=== PATIENT | female | born 1990 | race Caucasian/White ===

== ENCOUNTER → 2020-01-31 08:18 | Outpatient (BNVA) | payer OTHER, SELFPAY | PROVIDERS: Visit Provider Internal Medicine | DX: Z13.89 Encounter for screening for other disorder (principal) | CPT/HCPCS: 99213 ==

== ENCOUNTER → 2020-02-07 07:51 | Outpatient (BNVA) | payer OTHER, SELFPAY | PROVIDERS: Visit Provider Internal Medicine | DX: S39.012D Strain of muscle, fascia and tendon of lower back, subsequent encounter (principal); X58.XXXD Exposure to other specified factors, subsequent encounter | CPT/HCPCS: 99213 ==

== ENCOUNTER 2020-02-14 07:10 | Outpatient (REF) | payer OTHER, SELFPAY ==
--- NOTE | 2020-02-14 | MR_ITS ---
EXAMINATION: MR LUMBAR SPINE WITHOUT CONTRAST CLINICAL INFORMATION: Lifting injury with persistent pain. COMPARISON: There are no prior studies available for comparison at time of dictation. TECHNIQUE: MRI of the lumbar spine was obtained using routine sequences without contrast. FINDINGS: VERTEBRAL BODIES AND PARASPINAL STRUCTURES: There is a mild levoscoliosis. There is loss of signal from the intervertebral disc at L4-L5. Intervertebral disc heights are maintained. The vertebral bodies have normal height and contour, and there are no acute fractures. Overall, marrow signal is homogenous. The visualized retroperitoneal and pelvic structures are unremarkable. CONUS MEDULLARIS AND CAUDA EQUINA: Normal, terminating at the level of T12-L1. The lower thoracic spinal cord appears normal. The cauda equina nerve roots and filum terminale appear normal. SPINAL LEVELS: T12-L1: The facet joints appear normal bilaterally. Disc contour is normal. There is no central stenosis or foraminal narrowing. L1-L2: The facet joints appear normal bilaterally. Disc contour is normal. There is no central stenosis or foraminal narrowing. L2-L3: The facet joints appear normal bilaterally. Disc contour is normal. There is no central stenosis or foraminal narrowing. L3-L4: The facet joints appear normal bilaterally. Disc contour is normal. There is no central stenosis or foraminal narrowing. L4-L5: There is mild bilateral facet arthropathy. There is a broad-based posterior disc protrusion with an annular fissure, which flattens the ventral thecal sac. A small extruded component is seen extending cephalad behind the body of L4 to the right of midline without traversing nerve root impingement. The neural foramina are patent bilaterally. There is no central stenosis. L5-S1: The facet joints appear normal bilaterally. Disc contour is normal. There is no central stenosis or foraminal narrowing. MR/MR lumbar spine wo con IMPRESSION: 1. There is facet arthropathy and a posterior disc protrusion at L4-L5, with a small extruded component on the right extending behind the body of L4. There is no impingement on the traversing or exiting nerve roots, and there is no central stenosis.
== END 2020-02-14 07:11 | disposition home or self-care (01) ==
LOC: HO.MRI 07:10
PROVIDERS: Visit Provider Internal Medicine
DX: M54.5 Low back pain (principal)
CPT/HCPCS: 72148

== ENCOUNTER → 2020-02-21 07:51 | Outpatient (BNVA) | payer OTHER, SELFPAY | PROVIDERS: Visit Provider Internal Medicine | DX: M51.26 Other intervertebral disc displacement, lumbar region (principal) | CPT/HCPCS: 99214 ==

== ENCOUNTER 2020-03-09 13:00 | Outpatient (RCR) | payer OTHER, SELFPAY ==
--- NOTE | 2020-03-09 16:39 | MHC.PT.DC ---
[facility] [place] Office [place] [facility] [place] Office [address] Ghanshyam Franco [address] [phone] F: [phone] F: [phone] F: [phone] F: [phone] Physical Therapy Discharge Report Diagnosis: Lumbar strain Date of Surgery: Date of Evaluation: 12/23/19 Date of Discharge: Treatments to Date: 24 Cancellations to Date: 0 No Shows to Date: 0 Discharge Status: Discharge Summary: GOOD PERFORMANCE OF EXS AND STRETCHES OVERALL BETTER THAN SOC, BUT CONTINUES WITH SOME BACK PAIN, HAS SEEN NEUROSURGEON AND HAS FU IN 6 WEEKS. WILL DC AT THIS TIME HAVING PLATEAUED IN PT AND I WITH HEP. ED TO CONTACT PT WITH ANY QUESTIONS OR NEED FOR FURTHER PT (?[facility] [place]) Electronically signed by: ALPHONSO TOTH PT Please sign and return to therapist. Thank you for your referral.
--- NOTE | 2020-04-11 11:00 | MHC.PT.DC ---
[facility] [place] Office [place] [facility] [place] [facility] [address] Ghanshyam Franco [address] [phone] F: [phone] F: [phone] F: [phone] F: [phone] Physical Therapy Discharge Report Diagnosis: Lumbar strain Date of Surgery: Date of Evaluation: 12/23/19 Date of Discharge: 03/09/20 Treatments to Date: 24 Cancellations to Date: 0 No Shows to Date: 0 Discharge Status: Improved Function Independent with HEP Discharge Summary: GOOD PERFORMANCE OF EXS AND STRETCHES OVERALL BETTER THAN SOC, BUT CONTINUES WITH SOME BACK PAIN, HAS SEEN NEUROSURGEON AND HAS FU IN 6 WEEKS. WILL DC AT THIS TIME HAVING PLATEAUED IN PT AND I WITH HEP. ED TO CONTACT PT WITH ANY QUESTIONS OR NEED FOR FURTHER PT (?[facility] [place]) Electronically signed by: ALPHONSO TOTH PT Please sign and return to therapist. Thank you for your referral.
== END 2020-05-09 13:35 | disposition other institution (70) ==
LOC: HO.PT 13:00
PROVIDERS: Visit Provider Internal Medicine
DX: S39.012D Strain of muscle, fascia and tendon of lower back, subsequent encounter (principal)
CPT/HCPCS: 97014; 97110; 97112; 97140; 97530

== ENCOUNTER → 2020-07-02 11:39 | Outpatient (BNVA) | payer OTHER, SELFPAY | PROVIDERS: Visit Provider Internal Medicine | DX: M51.27 Other intervertebral disc displacement, lumbosacral region (principal) | CPT/HCPCS: 99202 ==

== ENCOUNTER → 2020-07-10 09:27 | Outpatient (BNVA) | payer OTHER, SELFPAY | PROVIDERS: Visit Provider Internal Medicine | DX: M54.5 Low back pain (principal) | CPT/HCPCS: 99213 ==

== ENCOUNTER → 2020-08-16 15:24 | Outpatient (BNVA) | payer OTHER, SELFPAY | PROVIDERS: Visit Provider Internal Medicine | DX: M54.5 Low back pain (principal) | CPT/HCPCS: 99213 ==

== ENCOUNTER → 2020-08-31 08:33 | Outpatient (BNVA) | payer OTHER, SELFPAY | PROVIDERS: Visit Provider Internal Medicine | DX: M54.5 Low back pain (principal) | CPT/HCPCS: 99213 ==

== ENCOUNTER → 2020-10-01 08:33 | Outpatient (BNVA) | payer OTHER, SELFPAY | PROVIDERS: Visit Provider Internal Medicine | DX: S39.012D Strain of muscle, fascia and tendon of lower back, subsequent encounter (principal); X58.XXXD Exposure to other specified factors, subsequent encounter | CPT/HCPCS: 99213 ==

== ENCOUNTER → 2020-10-19 07:56 | Outpatient (BNVA) | payer OTHER, SELFPAY | PROVIDERS: Visit Provider Internal Medicine | DX: S39.012D Strain of muscle, fascia and tendon of lower back, subsequent encounter (principal); X58.XXXD Exposure to other specified factors, subsequent encounter | CPT/HCPCS: 99213 ==

== ENCOUNTER → 2020-11-30 07:52 | Outpatient (BNVA) | payer OTHER, SELFPAY | PROVIDERS: Visit Provider Internal Medicine | DX: S39.012D Strain of muscle, fascia and tendon of lower back, subsequent encounter (principal); X58.XXXD Exposure to other specified factors, subsequent encounter | CPT/HCPCS: 99213 ==

== ENCOUNTER → 2021-02-05 08:22 | Outpatient (BNVA) | payer OTHER, SELFPAY | PROVIDERS: Visit Provider Internal Medicine | DX: S39.012D Strain of muscle, fascia and tendon of lower back, subsequent encounter (principal); X58.XXXD Exposure to other specified factors, subsequent encounter; M51.36 Other intervertebral disc degeneration, lumbar region | CPT/HCPCS: 73522; 99214 ==

== ENCOUNTER → 2021-03-08 08:04 | Outpatient (BNVA) | payer OTHER, SELFPAY | PROVIDERS: Visit Provider Internal Medicine | DX: S39.012D Strain of muscle, fascia and tendon of lower back, subsequent encounter (principal); X58.XXXD Exposure to other specified factors, subsequent encounter | CPT/HCPCS: 99214 ==

== ENCOUNTER → 2021-04-09 08:07 | Outpatient (BNVA) | payer OTHER, SELFPAY | PROVIDERS: Visit Provider Internal Medicine | DX: M51.26 Other intervertebral disc displacement, lumbar region (principal) | CPT/HCPCS: 99213 ==